=== PATIENT | male | born 2000 | race Hispanic/Latino ===

== ENCOUNTER → 2022-06-04 | Emergency (ER) | payer SELFPAY ==
[~2022-06-04] MED LIST: NICOTINE 21 MG/PAT TD ONE; WATER FOR INJ,STERILE 10 ML ONE; ZIPRASIDONE MESYLA 20 MG/VIAL IM ONE
--- NOTE | 2022-06-04 21:24 | EDPHYS ---
Physician Documentation [facility] Name: Sunil Bose Age: 22 yrs Sex: Male : 2000 Arrival Date: 06/04/2022 Time: 21:21 Bed 13 Private MD: ED Physician Yusuf Julian MDM: 06/04 21:21 Patient medically screened. ms3 Administered Medications: No medications were administered Disposition Summary: 06/04/22 21:23 Transfer Ordered Accepting Physician: Dr roberts Transfer Location: [facility] ms3 Reason: Higher level of care ms3 Condition: Stable ms3 Problem: new ms3 Symptoms: are unchanged ms3 Diagnosis - Suicidal ideations ms3 Forms: - Medication Reconciliation Form ms3 - SBAR form ms3 Signatures: Yusuf Julian DO DO ms3
[2022-06-04 21:38] LABS: Urine Blood Negative (Negative); Urine Glucose Negative (Negative); Urine Protein Negative (Negative)
[2022-06-04 22:27] LABS: Absolute Lymphocytes (CBC) 2.5 K/uL (0.7-4.9); Hematocrit 42.8 % (39.6-49.0); MCV 88.4 fL (80-100); Protime INR 0.96; RBC Red Blood Cell Count 4.84 M/uL (4.33-5.43)
[2022-06-04 22:32] LABS: Barbiturates NEGATIVE (NEGATIVE); Benzodiazepines NEGATIVE (NEGATIVE); Cocaine POSITIVE (NEGATIVE); METHAMPHETAM NEGATIVE (NEGATIVE); Methadone NEGATIVE (NEGATIVE); Opiates NEGATIVE (NEGATIVE); Phencyclidine NEGATIVE (NEGATIVE); THC Cannibis POSITIVE (NEGATIVE)
[2022-06-04 23:16] LABS: ALT/SGPT 25 U/L (12-78); AST/SGOT 24 U/L (15-37); Albumin 4.8 g/dL (3.4-5.0); Alkaline Phosphatase 114 U/L (45-117); BUN Blood Urea Nitrogen 13 mg/dL (7-18); Bicarbonate 27 mmol/L (21-32); Bilirubin Direct 0.1 mg/dL (0-0.2); Bilirubin Total 0.5 mg/dL (0.2-1.0); Glomerular Filtration Rate 94 ml/min (=/>90); Glucose Level 91 mg/dL (74-106); Potassium 3.7 mmol/L (3.5-5.1); Protein, Total 8.1 g/dL (6.4-8.2); Sodium Level 140 mmol/L (136-145)
[2022-06-04 23:18] LABS: SARS-CoV-2 Antigen Rapid Res Negative (Negative)
--- NOTE | 2022-06-06 06:35 | EKG ---
Test Date: 2022-06-04 Test Time: 21:22:54 Drafter Geophysical: LILLY MEASUREMENT RESULTS: Intervals: Rate: 75 [place]: 194 QRSD: 100 QT: 366 QTc: 408 [place]: P: 65 [place]: 194 QRS: 93 T: 71 INTERPRETIVE STATEMENTS: Normal sinus rhythm Possible Left atrial enlargement Rightward axis Incomplete right bundle branch block Borderline ECG No previous ECG available for comparison Electronically Signed On 06-06-22 06:31:31 CDT by Ulisses Sanchez
== END ==
LOC: ER 21:10
DX: R45.851 Suicidal ideations (principal)
CPT/HCPCS: 36415; 80048; 80076; 80307; 80320; 80329; 81003; 85025; 85610; 85730; 87811; 93005